=== PATIENT | male | born 1995 | race Caucasian/White ===

== ENCOUNTER 2017-08-04 11:17 | Emergency (ER) | payer OTHER ==
[2017-08-04] MEDS ORDERED: IBUP600T22 PO (12:05)
--- NOTE | 2017-08-04 12:05 | ER Report ---
History and Physical Time Seen By MD: 11:30 Hx. of Stated Complaint: PATIENT REPORTS INTERMITTANT PAIN IN HIS LEFT UPPER ARM. HE REPORTS THAT THE PAIN ONLY OCCURS WHEN HE IS LIFTING SOMETHING HEAVY HPI/ROS 22 year old here doing drills. pain left elbow and left shoulder with lifting . Allergies: Coded Allergies: No Known Drug Allergies (Unverified , 08/04/17) Home Meds Active Scripts Ibuprofen (IBUPROFEN) 600 Mg Tablet, 1 TAB PO Q6H, #30 TAB Prov:JUANA EASON Mia GALARZA 08/04/17 Past Medical/Surgical History negative Hx Smoking: No Exposure to Second Hand Smoke?: No Hx Substance Use Disorder: No Hx Alcohol Use: No Constitutional Vital Sign - Last 24 Hours 08/04/17 08/04/17 08/04/17 08/04/17 11:22 11:23 11:30 11:47 Temp 98.4 Pulse 63 64 Resp 16 B/P (MAP) 132/78 132/78 (96) 135/84 (101) Pulse Ox 94 93 O2 Delivery Room Air 08/04/17 08/04/17 08/04/17 08/04/17 12:00 12:05 12:30 12:35 Pulse 55 68 B/P (MAP) 120/72 (88) 123/77 (92) Pulse Ox 95 94 Physical Exam 22 year old male alert nad, hrr lungs cta, abd soft pain left elbow shoulder to palpation pain increases when raising arm over shoulder height Medical Decision Making ED Course/Re-evaluation ED Course xray negative will sling and rest x 1 week then send to pcp for furter eval and treatment Re-evaluation paperwork done for will diagnose with strain if painful in 1 week them consider mri for potential rotator cuff tear Procedure sling placed by nursing cms intact distally Decision to Disposition Date: Aug 04, 2017 Decision to Disposition Time: 12:30 Depart Departure Latest Vital Signs Vital Signs Date Time Temp Pulse Resp B/P (MAP) Pulse Ox O2 Delivery O2 Flow Rate FiO2 08/04/17 12:35 68 94 08/04/17 12:30 123/77 (92) 08/04/17 11:22 98.4 16 Room Air Impression: Primary Impression: Left shoulder strain Condition: Improved Disposition: HOME OR SELF-CARE Referrals: [facility] 5 Days New Scripts Ibuprofen (IBUPROFEN) 600 Mg Tablet 1 TAB PO Q6H, #30 TAB Prov: JUANA EASON 08/04/17 Patient Instructions: Muscle Strain (ED) Additional Instructions: Take medication as instructed, wear sling when up and around 7 days, follow-up with primary care physician if still having pain after 7 days for further evaluation and imaging JUANA EASON Aug 04, 2017 12:05
--- NOTE | 2017-08-04 12:29 | RADIOLOGY IMAGING REPORT ---
FACILITY: [facility] - [place] PATIENT NAME: Roberto Stanford : 1995 MR: [id number] V: [id number] EXAM DATE: ORDERING PHYSICIAN: JUANA EASON TECHNOLOGIST: Location: [facility] Patient: Roberto Stanford : 1995 Visit/Account:[id number] Date of Sevice: 08/04/2017 INDICATION: Left shoulder pain DATE: 08/04/2017 11:32 AM TECHNIQUE: SHOULDER MIN 2 VIEWS LEFT COMPARISON: None FINDINGS: The humeral head articulates normally with the glenoid. The coraco- and acromioclavicular distances are normal. No evidence of fracture or dislocation. IMPRESSION: Radiographically normal left shoulder. Report Dictated By: Samantha Atkinson MD at 08/04/2017 12:24 PM Report E-Signed By: Samantha Atkinson MD at 08/04/2017 12:24 PM WSN:[id number]
[2017-08-04 12:30] VITALS: BP 123/77
== END 2017-08-04 12:45 | disposition home or self-care (01) ==
LOC: ER 11:33
DX: S46.912A Strain of unspecified muscle, fascia and tendon at shoulder and upper arm level, left arm, initial encounter (principal); X50.0XXA Overexertion from strenuous movement or load, initial encounter
CPT/HCPCS: 73030; 99283; A4565